=== PATIENT | male | born 1975 | race Caucasian/White ===

== ENCOUNTER 2017-01-07 16:50 | Emergency (ER) | payer SELFPAY ==
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
[~2017-01-07 16:50] MED LIST: ATENOLOL PO; BYSTOLIC5 MG PO; CARDIZEM CD PO; DILTIAZEM 24HR120 MG PO; LOPRESSOR PO; METOPROLOL SUCC25 MG PO; NO MEDICATIONS; TOPROL XL PO
== END 2017-01-07 17:12 | disposition home or self-care (01) ==
LOC: CED 16:50
DX: S13.4XXA Sprain of ligaments of cervical spine, initial encounter (principal); S20.229A Contusion of unspecified back wall of thorax, initial encounter; F17.200 Nicotine dependence, unspecified, uncomplicated; Z98.890 Other specified postprocedural states; V49.40XA Driver injured in collision with unspecified motor vehicles in traffic accident, initial encounter; Y93.89 Activity, other specified; Y92.410 Unspecified street and highway as the place of occurrence of the external cause
CPT/HCPCS: 72072; 72125; 99284